=== PATIENT | female | born 2000 | race Caucasian/White ===

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

== ENCOUNTER 2022-07-09 14:06 | Emergency (ER) | payer BC, SELFPAY ==
[2022-07-09 14:13] VITALS: BP 131/80; PULSE 95; O2SAT 100
[2022-07-09 14:31] VITALS: BP 131/80; PULSE 102; RESP 16; TEMP 36.7; O2SAT 100; BMI 19.3
--- NOTE | 2022-07-09 14:36 | CT_ITS ---
PROCEDURE INFORMATION: Exam: CT Abdomen And Pelvis With Contrast Exam date and time: 07/09/2022 3:03 PM Age: 21 years old Clinical indication: Abdominal pain; Generalized; Additional info: Abd pain- left lower TECHNIQUE: Imaging protocol: Computed tomography of the abdomen and pelvis with contrast. Radiation optimization: All CT scans at this facility use at least one of these dose optimization techniques: automated exposure control; mA and/or kV adjustment per patient size (includes targeted exams where dose is matched to clinical indication); or iterative reconstruction. Contrast material: ISOVUE; Contrast volume: 75 ml; Contrast route: IV; Other protocol: This patient has received 2 known CTs and 0 known cardiac nuclear medicine studies in the 12 months prior to the current study. COMPARISON: CT ABDOMEN PELVIS W CON 11/18/2021 8:50 PM FINDINGS: Lungs: No acute findings in the visualized lower lungs. No consolidation. Heart: The heart is not enlarged. Liver: Mild diminished attenuation in the medial segment of the left lobe of liver which has the appearance of benign periligamentous fatty change coronal series 1001, image 9. No suspicious mass. No hepatomegaly. Gallbladder and bile ducts: The gallbladder is unremarkable. No calcified stones or biliary dilatation. Pancreas: The pancreas is normal. Spleen: The spleen is normal. Adrenal glands: The adrenal glands are normal. Kidneys and ureters: The kidneys are normal. The ureters are normal. Stomach and bowel: The stomach is normal. Mild gaseous distention of multiple small intestinal loops with some scattered air-fluid levels, but no significantly dilated loops to suggest obstruction, and no significant mucosal thickening. The ascending and proximal transverse colon, and the sigmoid colon are empty and contracted which may account for thickened appearance, differential would be colitis. There is gaseous distention of the transverse colon which is located in the upper pelvis. Appendix: No findings of appendicitis. Intraperitoneal space: There is trace free fluid in the cul-de-sac.There is no free intraperitoneal air. Vasculature: There is no aortic aneurysm. Lymph nodes: No significantly enlarged lymph nodes by short axis criteria. Urinary bladder: The bladder is normal. Reproductive: Peripheral hypervascularity in the uterine myometrium series 3, image 94. Slight adnexal hypervascularity, no significantly distended varices or renal vein dilatation. Likely multiple tiny cervical nabothian cysts series 3, image 90, rather than other cervical disease, this would be more accurately evaluated with ultrasound. Low-density ovaries with likely multiple tiny follicles. The largest follicular cyst is on the left, with prominent rim enhancement, measuring approximately 2.2 cm coronal image 27, axial series 3, image 86, with slightly irregular contours suggesting an involuting functional cyst. Bones/joints: There is no evidence of acute fracture. There are no lytic skeletal lesions seen. Soft tissues: There are no soft tissue masses or fluid collections. IMPRESSION: 1. Likely involuting functional 2.2 cm left ovarian cyst, with rim enhancement and irregular contours. This is within normal limits for age. Trace free fluid in the cul-de-sac. 2. There is slight uterine myometrial and bilateral adnexal hypervascularity in the pelvis, though no significant dilated varices are seen. This may be of no clinical significance, but can be seen with history of PID, endometriosis, or this could be early pelvic venous congestion. 3. Loops of ascending and proximal transverse colon, and sigmoid colon are
[2022-07-09 14:37] LABS: Microscopic, Urine URINE MICROSCOPIC (MICROSCOPIC)
[2022-07-09 14:43] LABS: Appearance,Urine SL CLOUDY (Clear); Blood, Urine 2+ (Negative); Color,Urine YELLOW (Yellow); Glucose,Urine (UA) Negative (Negative); Ketones,Urine TRACE (Negative); Leukocyte Esterase,Urine Negative (Negative); Nitrate,Urine Negative (Negative); PH,Urine 6.5 (5.0-8.5); Protein,Urine 1+ (Negative); Specific Gravity, Urine >= 1.030 (1.005-1.030)
[2022-07-09 14:45] LABS: Basophils # 0.1 K/mm3 (0-0.2); Basophils % 1.5 % (0.1-2.0); Bilirubin,Urine 1+ (Negative); Eosinophils # 0.4 K/mm3 (0.0-0.4); Eosinophils % 5.3 % (0.1-12.0); Hematocrit 43.5 % (37.0-47.0); Hemoglobin 14.5 g/dL (12.2-16.2); Lymphocytes # 1.8 K/mm3 (0.7-4.5); Lymphocytes % 21.4 % (10-50); Mean Corpuscular HGB Conc 33.4 g/dL (31.8-35.4); Mean Corpuscular Hemoglobin 30.4 pg (27.0-31.2); Mean Platelet Volume 11.1 fl (7.4-10.4); Monocytes # 0.5 K/mm3 (0.1-1.0); Monocytes % 6.4 % (1.7-9.3); Neutrophils # 5.5 K/mm3 (1.8-7.8); Neutrophils % 65.5 % (37.0-80.0); Platelet Count 154 K/mm3 (142-424); Red Blood Count 4.78 M/mm3 (4.20-5.40); Red Cell Distribution Width 13.4 % (11.5-17.5); Urine Pregnancy, HCG Qual. Negative (Negative); White Blood Count 8.5 K/mm3 (4.5-13.0)
--- NOTE | 2022-07-09 14:53 | HMH.EDGENADL ---
Discharge Plan Disposition Patient Disposition: Home, Self-Care Condition: Good Referrals Follow up/Referrals: Provider,MD Winnie [Primary Care Provider] - See instructions Angeline Yost MD [Staff Physician] - See instructions Activity Restrictions/Add. Instructions Additional Instructions/Restrictions: Ibuprofen for pain. Follow-up with Dr. Yost, gynecology. Call Monday to make appointment. Return for worsening symptoms. Additional instructions for ABDOMINAL PAIN: See your physician as soon as possible for further evaluation. Return immediately if worsening abdominal pain, vomiting, shortness of breath, fever, vomiting of blood or abdominal distention. Clinical Impressions Clinical Impression: Ovarian cyst Instructions Patient Instructions: DI for Ovarian Cyst, DI for Abdominal Pain-Adult Discharge ED Provider: Jesús Marcano General Adult HPI General Chief complaint: Abdominal Pain Stated complaint: LT pelvic pain w/inflammation Time Seen by Provider: 07/09/22 14:45 Mode of Arrival: Wheelchair Source of Information: Patient Limitations: No Limitations Description of Symptoms (Recalled from ER Triage Doc. by RN): pt comes in with c/o left sided pelvic area pain. pt believes that she may have had a cyst burst. pt states that she was seen here before and was told that she may have a cyst on the right side but pain today is located on the left side. pain began yesterday, worse today. History of Present Illness HPI narrative: 2-day history of left lower quadrant abdominal pain without radiation. Feels similar to previous pain that she had on the right side, was told that she had had a cyst that had ruptured. Describes the pain as achy at times and sharp and stabbing at times. She is having a hard time starting her urinary stream and the pain in her left lower quadrant increases when she tries to urinate. Last bowel movement 2 days ago, no diarrhea. Denies fever. Last menstrual period June 07, 2022. No vomiting. No prior history of abdominal surgeries. Nulligravida. No history of kidney stones. Related Data Allergies Allergy/AdvReac Type Severity Reaction Status Date / Time No Known Allergies Allergy Verified 07/22/21 20:39 [facility] Disclaimer: The information contained in this section may have been updated after the patient was seen, as this information can be updated by other users. Social History Smoking Status: Current every day smoker ROS Obtained: Yes Systems reviewed as appropriate & no additional complaints except as documented Constitutional Constitutional: Denies fever(s), Denies headache(s) and Denies weakness ENT Ears, Nose, Mouth, and Throat: Denies headache(s), Denies nasal discharge and Denies sore throat Cardiovascular Cardiovascular: Denies chest pain Respiratory Respiratory: Denies shortness of breath and Denies cough Gastrointestinal Gastrointestingal: Reports abdominal pain and constipation; Denies diarrhea or vomiting Genitourinary Female Genitourinary: Denies difficulty voiding, Denies dysuria and Denies flank pain Musculoskeletal Musculoskeletal: Denies numbness Neurologic Neurologic: Denies headache(s), Denies numbness and Denies weakness Physical Exam General General appearance: alert and in no apparent distress Head Head exam: atraumatic and normocephalic Eye Eye exam: Present normal appearance and EOMI ENT ENT exam: Present mucous membranes moist Neck Neck exam: Present normal inspection and trachea midline Chest Chest inspection: Present normal inspection and symmetric chest wall rise Respiratory Respiratory exam: Present normal lung sounds bilaterally; Absent respiratory distress Cardiovascular Cardiovascular exam: Present regular rate, normal rhythm and normal heart sounds Abdominal Exam Abdominal exam: Present soft, tenderness and normal bowel sounds; Absent distention, guarding, rebound or rigidity Abdominal tenderness: Present LLQ and mi
[2022-07-09 14:55] LABS: Bacteria,Urine Trace /lpf
[2022-07-09 14:56] LABS: Chloride 108 mmol/L (98-107)
[2022-07-09 14:57] LABS: Potassium 3.5 mmoL/L (3.5-5.1); Sodium 140 mmol/L (136-145)
[2022-07-09 14:59] LABS: Amylase 65 U/L (30-110); Blood Urea Nitrogen 7 mg/dl (7-17); Creatinine Clearance Estimated 103 mL/min (50-200); Estimated Glomerular Filt Rate 92 ml/min (>60); GFR (African American) 112 ML/MIN (>60); Lipase 27 U/L (23-300)
[2022-07-09 15:00] LABS: Alanine Aminotransferase 15 U/L (12-78); Albumin Level 4.7 g/dl (3.5-5.0); Albumin/Globulin Ratio 1.4 (1.1-1.8); Alkaline Phosphatase 73 U/L (38-126); Anion Gap 10.5 mEq/L (5-15); Aspartate Amino Transferase 27 U/L (14-36); Bilirubin,Total 0.8 mg/dl (0.2-1.3); Calcium 9.2 mg/dl (8.4-10.2); Carbon Dioxide 25 mmol/L (22.0-30.0); Globulin 3.4 g/dL (1.3-3.2); Glucose 104 mg/dl (74-100); Total Protein,Serum 8.1 g/dl (6.3-8.2)
--- NOTE | 2022-07-09 15:28 | PC.NURSE ---
PT LAYING IN BED NOTHING HAS CHANGED
[2022-07-09 15:30] VITALS: BP 118/74; PULSE 92; O2SAT 99
[2022-07-09 16:19] VITALS: BP 120/71; PULSE 100; RESP 18; TEMP 36.7; O2SAT 100
== END 2022-07-09 16:22 | disposition home or self-care (01) ==
PROVIDERS: Emergency Provider Emergency Medicine
DX: N83.202 Unspecified ovarian cyst, left side (principal); R10.2 Pelvic and perineal pain; F17.210 Nicotine dependence, cigarettes, uncomplicated
CPT/HCPCS: 74177; 80053; 81001; 81025; 82150; 83690; 85025; 96374; 99285; Q9967

== ENCOUNTER 2023-09-05 22:17 | Emergency (ER) | payer BC, SELFPAY ==
[2023-09-05 22:24] VITALS: BP 130/78; PULSE 98; RESP 16; TEMP 36.4; O2SAT 99; BMI 19.8
--- NOTE | 2023-09-05 22:28 | HMH.EDGENADL ---
Discharge Plan Disposition Patient Disposition: Home, Self-Care Condition: Good Prescriptions Prescriptions: No Action No Known Home Medications Referrals Follow up/Referrals: Mckenna Zambrano MD [Referring] - See instructions Provider,MD Winnie [Primary Care Provider] - See instructions Activity Restrictions/Add. Instructions Additional Instructions/Restrictions: I have placed a referral for you to be established with a [facility] doctor. Please return with any new or worsening symptoms. I recommend you take anti-inflammatories such as ibuprofen as needed for pain. Clinical Impressions Clinical Impression: Dyspareunia Instructions Patient Instructions: DI for Acute Abdominal Pain Discharge ED Provider: Ashu Mock General Adult HPI General Chief complaint: Abdominal Pain Stated complaint: abd pain Time Seen by Provider: 09/05/23 22:28 History of Present Illness HPI narrative: Patient presents for evaluation of acute onsets suprapubic pain, moderate in severity, nonradiating, with no associated nausea or vomiting which occurred after intercourse. She denies any vaginal bleeding. She has not had similar symptoms before. Does report history of ovarian cyst but reports her pain is not in the same location. Her pain in the past has been more lateral in nature. She was in her normal state of health prior to onset of symptoms. Denies any dysuria or frequency. Denies any pain elsewhere. No previous therapies. The patient's pain was abrupt in onset, constant, however gradually improving. Her last menstrual period was approximately 3 weeks ago. Please note that above description of symptoms, in this electronic medical record under categorization of recalled from ER triage doctor by RN are reflective of an initial nursing assessment, however, is not reflective of my full history and physical exam that was personally taken and clarified. Consequentially, this preceding description of symptoms, which may include the patient's categorized chief complaint in the EMR, do not reflect my personal clinical impression, and the ultimate description of history of present illness and patient stated complaints should be deferred to this section of the note. Unless stated otherwise or congruent with this section of the note, additional signs, symptoms, or incongruence should be interpreted as inaccurate with my clinical impression. Related Data Home Medications Medication Instructions Recorded Confirmed No Known Home Medications 10/31/22 10/31/22 Allergies Allergy/AdvReac Type Severity Reaction Status Date / Time No Known Allergies Allergy Verified 07/22/21 20:39 [facility] Disclaimer: The information contained in this section may have been updated after the patient was seen, as this information can be updated by other users. Social History Smoking Status: Current every day smoker alcohol intake: never current occupational status: other Travel in the last 8 weeks: None ROS Obtained: Yes Systems reviewed as appropriate & no additional complaints except as documented As per HPI Physical Exam General General appearance: alert and in no apparent distress Head Head exam: atraumatic and normocephalic Eye Eye exam: Present normal appearance Neck Neck exam: Present normal inspection Chest Chest inspection: Present normal inspection and symmetric chest wall rise Respiratory Respiratory exam: Present normal lung sounds bilaterally; Absent respiratory distress Cardiovascular Cardiovascular exam: Present regular rate and normal rhythm Abdominal Exam Abdominal exam: Present soft; Absent guarding Abdominal tenderness: Present suprapubic and mild Neurological Exam Neurological exam: Present alert and oriented X3 Psychiatric Psychiatric exam: Present normal affect and normal mood Skin Skin exam: Present warm and dry Medical Decision Making Medical Records Medical records reviewed: Yes I reviewed the patient's medical records. Ryan Inquiry Pt receiving controlled substance: No Vital Signs: 09/05/23 22:24 09/05/23 23:06 09/06/23 00:07 Temperature 97.6 F 97.6 F Temperature Source Oral Oral Pulse Rate 87 81 Pulse Rate [Left] 98 H Respiratory Rate 16 16 Blood Pressure 119/68 107/83 L Blood Pressure [Right Arm] 130/78 Blood Pressure Mean 85 Blood Pressure Mean [Right Arm] 95 Blood Pressure Source [Right Arm] Automatic Cuff Blood Pressure Position [Right Arm] Sitting 02 Sat by Pulse Oximetry 99 98 Lab Data Lab Results 09/05/23 22:52: Urine Color Yellow, Urine Appearance Clear, Urine pH 5.5, Ur Specific [place] >= 1.030, Urine Protein 1+, Urine Glucose (UA) Negative, Urine Ketones Trace, Urine Blood 2+, Urine Nitrate Negative, Urine Bilirubin 1+ A, Urine Urobilinogen 0.2, Ur Leukocyte Esterase Negative, Urine RBC Occasional, Urine WBC Occasional, Ur Squamous Epith Cells 3-5, Urine Bacteria Trace, Urine HCG, Qual Negative Orders (Tests/Meds): ED MEDICATIONS Discontinued Medications Generic Name Dose Route Start Last Admin Trade Name Freq PRN Reason Stop Dose Admin Ketorolac Tromethamine 15 mg 09/05/23 22:53 09/05/23 23:15 Ketorolac 30mg/Ml Vial IM 09/05/23 22:54 Not Given ONCE ONE Ketorolac Tromethamine 15 mg 09/05/23 23:16 09/05/23 23:18 Ketorolac 30mg/Ml Vial IV 09/05/23 23:17 15 mg ONCE ONE Administration ORDERS Category Date Time Status Urinalysis and Microscopic Stat Lab 09/05/23 22:52 Completed Urine , HCG Qual. Stat Lab 09/05/23 22:52 Completed Medical Decision Narrative: Patient with history and exam per above presenting for evaluation of dyspareunia Diagnoses considered include endometriosis, cystitis, , ovarian torsion, ectopic . ED workup and treatment included: Urine , urinalysis, ketorolac IV x 1, 15 mg, [id number] ultrasound, transabdominal, of the ovaries Labs were independently interpreted by me, significant for no strong evidence, when clinically correlated, to suggest PID, cystitis Imaging was independently visualized and interpreted by me, significant for no visualized ovarian cyst, appropriate blood flow to bilateral ovaries. My clinical impression at this time is most consistent with uncomplicated dyspareunia. Patient reports marked improvement of symptoms after administration of ketorolac. I discussed my clinical impression with patient and answered all questions. At this time, the evidence for any other entities in the differential is insufficient to warrant any further testing or ED observation. This was explained to the patient. The patient was advised that persistent or worsening symptoms require further evaluation. I confirmed the patient's understanding of this discussion. Critical Care Critical Care Time Critical Care Time: No
[2023-09-05 22:59] LABS: Microscopic, Urine URINE MICROSCOPIC (MICROSCOPIC)
[2023-09-05 23:02] LABS: Appearance,Urine CLEAR (Clear); Bilirubin,Urine 1+ (Negative); Blood, Urine 2+ (Negative); Color,Urine YELLOW (Yellow); Glucose,Urine (UA) Negative (Negative); Ketones,Urine TRACE (Negative); Leukocyte Esterase,Urine Negative (Negative); Nitrate,Urine Negative (Negative); PH,Urine 5.5 (5.0-8.5); Protein,Urine 1+ (Negative); Specific Gravity, Urine >= 1.030 (1.005-1.030); Urobilinogen,Urine 0.2 EU/dl (0.2)
[2023-09-05 23:05] LABS: Urine Pregnancy, HCG Qual. Negative (Negative)
[2023-09-05 23:06] VITALS: BP 119/68; PULSE 87; O2SAT 98
[2023-09-05 23:17] LABS: Bacteria,Urine Trace /lpf; RBC,Urine Occasional #/hpf (0-3); WBC,Urine Occasional #/hpf (0-3)
[2023-09-05] MEDS: KETOROLAC 30MG/ML VIAL 15 MG IV (23:18)
[2023-09-06 00:07] VITALS: BP 107/83; PULSE 81; RESP 16; TEMP 36.4; O2SAT 99
== END 2023-09-06 00:08 | disposition home or self-care (01) ==
PROVIDERS: Emergency Provider Emergency Medicine
DX: R10.2 Pelvic and perineal pain (principal); N94.10 Unspecified dyspareunia; F17.210 Nicotine dependence, cigarettes, uncomplicated
CPT/HCPCS: 81001; 81025; 96372; 96374; 99284

== ENCOUNTER 2024-05-10 16:31 | Emergency (ER) | payer SELFPAY ==
[2024-05-10 16:45] VITALS: BP 139/98; PULSE 77; RESP 19; TEMP 36.7; O2SAT 100; BMI 21.7
--- NOTE | 2024-05-10 17:13 | ED_ITS ---
Discharge Plan Disposition Patient Disposition: Home, Self-Care Condition: Good Prescriptions Prescriptions: New amoxicillin 875 mg tablet 875 mg PO Q12H Qty: 20 0RF fluticasone propionate [Flonase Allergy Relief] 50 mcg/actuation spray,suspension 2 spray intranasal DAILY Qty: 16 0RF Rx Instructions: administer into each nostril daily Referrals Follow up/Referrals: Provider,Referral, MD [Primary Care Provider] - See instructions Activity Restrictions/Add. Instructions Additional Instructions/Restrictions: Take medication as prescribed Use flonase as prescribed FOllow up with your Family Doctor if no improvement or any worsening of symptoms Return if needed Over the counter Motrin and/or Tylenol for pain and fever Clinical Impressions Clinical Impression: Otitis media Qualifiers: Otitis media type: unspecified Laterality: left Qualified Code(s): H66.92 - Otitis media, unspecified, left ear Instructions Patient Instructions: Middle Ear Infection, Ibuprofen, Amoxicillin Print Language Print Language: [place]ese Discharge ED Provider: Maddi Khan [facility] General Stated complaint: left earache Mode of Arrival: Ambulatory Source of Information: Patient Limitations: No Limitations Time Seen by Provider: 05/10/24 17:13 Description of Symptoms (Recalled from Triage Doc. by RN): PATIENT C/O LEFT EAR PAIN THAT STARTED TODAY HEENT Symptoms (Recalled from RN notes): Yes Resp Symptoms (Recalled from RN notes): No Skin Symptoms (Recalled from RN notes): No MS Symptoms (Recalled from RN notes): No Functional Status (Recalled from RN notes): WNL History of Present Illness Provider Complaint: Patient states that she has been having cough and today she started with sharp pains in her left ear States this evening it was worse so she came in to get checked Related Data Previous Rx's ?Medication ?Instructions ?Recorded amoxicillin 875 mg tablet 875 mg PO Q12H #20 tabs 05/10/24 fluticasone propionate 50 2 spray intranasal DAILY #16 grams 05/10/24 mcg/actuation nasal spray,suspension (Flonase Allergy Relief) Allergies Allergy/AdvReac Type Severity Reaction Status Date / Time No Known Allergies Allergy Verified 07/22/21 20:39 Worker's Comp Is this a Worker's Comp case?: No [facility] Disclaimer: The information contained in this section may have been updated after the patient was seen, as this information can be updated by other users. Social History (Updated 09/06/23 @ 18:48 by Ashu Mock MD) Smoking Status: Current every day smoker alcohol intake: never current occupational status: other Travel in the last 8 weeks: None Have you lived/traveled outside [place] in past 30 days?: No Contact w/someone who lives/traveled outside US past 30 days?: No Exposure to someone with infectious disease in past 14 days?: No Do you have a fever (greater than 100.4 F or 38 C)?: No Have you tested positive for COVID-19: No Exposed to someone with COVID-19 in past 14 days?: No Do you have a sore throat?: No Do you have a cough?: No Do you have any weakness?: No Do you have any diarrhea?: No Are you experiencing any unusual bleeding?: No Do you have any muscle aches/pain?: No Do you have any abdominal pain?: No Are you experiencing loss of taste or smell?: No ROS Obtained: Yes All systems reviewed & no additional complaints except as documented and Yes Systems reviewed as appropriate & no additional complaints except as documented Constitutional Constitutional: Reports system reviewed and no additional complaints, except as documented and Reports as per HPI ENT Ears, Nose, Mouth, and Throat: Reports system reviewed and no additional complaints, except as documented, Reports as per HPI and Reports otalgia Cardiovascular Cardiovascular: Reports system reviewed and no additional complaints, except as documented and Reports as per HPI Respiratory Respiratory: Reports system reviewed and no additional complaints, except as documented, Reports as per HPI and Reports cough Gastrointestinal Gastrointestingal: Reports system reviewed and no additional complaints, except as documented and as per HPI Physical Exam General General appearance: alert and in no apparent distress ENT ENT exam: Present mucous membranes moist Expanded ENT Exam TM/Canal exam: Left TM: erythema and loss of landmarks Respiratory Respiratory exam: Present normal lung sounds bilaterally; Absent respiratory distress or wheezes Cardiovascular Cardiovascular exam: Present regular rate, normal rhythm and normal heart sounds Abdominal Exam Abdominal exam: Present soft and normal bowel sounds; Absent distention or tenderness Neurological Exam Neurological exam: Present alert, oriented X3 and normal gait Medical Decision Making Medical Records Screening: Per USPSTF and CDC recommendations, given the prevalence of disease in our region, it is our hospital?s policy to screen for HIV and viral Hepatitis for all patients aged 18 and over and those with ongoing risk factors. Ryan Inquiry Pt receiving controlled substance: No Ryan was queried for this patient: No Vital Signs: 05/10/24 16:45 Temperature 98.0 F Temperature Source Oral Pulse Rate [Left Brachial] 77 Respiratory Rate 19 Blood Pressure [Left Arm] 139/98 H Blood Pressure Mean [Left Arm] 111 Blood Pressure Source [Left Arm] Automatic Cuff Blood Pressure Position [Left Arm] Sitting 02 Sat by Pulse Oximetry 100 Oxygen Delivery Method Room Air
[2024-05-10 17:19] VITALS: BP 139/98; PULSE 77; RESP 20; TEMP 36.7; O2SAT 100
== END 2024-05-10 17:22 | disposition home or self-care (01) ==
PROVIDERS: Emergency Provider Nurse Practitioner
DX: H66.92 Otitis media, unspecified, left ear (principal); H92.09 Otalgia, unspecified ear; R05.9 Cough, unspecified
CPT/HCPCS: 99212; G0381

== ENCOUNTER 2024-05-29 14:51 | Emergency (ER) | payer SELFPAY ==
[2024-05-29 14:52] VITALS: BP 123/87; PULSE 90; RESP 16; TEMP 36.7; O2SAT 98; BMI 20.9
--- NOTE | 2024-05-29 15:04 | ED_ITS ---
Discharge Plan Disposition Patient Disposition: Home, Self-Care Condition: Good Prescriptions Prescriptions: No Action amoxicillin 875 mg tablet 875 mg PO Q12H Qty: 20 0RF fluticasone propionate [Flonase Allergy Relief] 50 mcg/actuation spray,suspension 2 spray intranasal DAILY Qty: 16 0RF Rx Instructions: administer into each nostril daily Referrals Follow up/Referrals: Cong Borja DO [Staff Physician] - See instructions Provider,Referral, MD [Primary Care Provider] - See instructions Activity Restrictions/Add. Instructions Additional Instructions/Restrictions: I have placed a referral to the orthopedic doctor for you to follow-up in case you need further testing such as an MRI if your pain does not go away. I recommend rest, ice, elevation, weightbearing as tolerated, as well as crutches and an air splint of your ankle that you should use as needed. I recommend you take a total of 3 to 5 days of ibuprofen 3 times a day. Please return with any new or worsening symptoms. As discussed, your x-rays of your ankle and knee did not show any fractures. Clinical Impressions Clinical Impression: Knee pain, right, Ankle pain, left Print Language Print Language: [place] Citizen Discharge ED Provider: Ashu Mock Adult HPI General Chief complaint: PAIN Stated complaint: AO 05/25/24, fell, inj rt knee, lt ankle Time Seen by Provider: 05/29/24 15:04 History of Present Illness HPI narrative: Patient presents for evaluation of right knee pain, lateral, and left ankle pain , lateral, following fall from standing on 05/25/2024. She has been able to bear weight since that time. Symptoms were acute in onset, constant, stable in course. No pain elsewhere. No numbness or tingling. No blood thinner usage. Please note that above description of symptoms, in this electronic medical record under categorization of recalled from ER triage doctor by RN are reflective of an initial nursing assessment, however, is not reflective of my full history and physical exam that was personally taken and clarified. Consequentially, this preceding description of symptoms, which may include the patient's categorized chief complaint in the EMR, do not reflect my personal clinical impression, and the ultimate description of history of present illness and patient stated complaints should be deferred to this section of the note. Unless stated otherwise or congruent with this section of the note, additional signs, symptoms, or incongruence should be interpreted as inaccurate with my clinical impression. Related Data Previous Rx's ?Medication ?Instructions ?Recorded amoxicillin 875 mg tablet 875 mg PO Q12H #20 tabs 05/10/24 fluticasone propionate 50 2 spray intranasal DAILY #16 grams 05/10/24 mcg/actuation nasal spray,suspension (Flonase Allergy Relief) Allergies Allergy/AdvReac Type Severity Reaction Status Date / Time No Known Allergies Allergy Verified 07/22/21 20:39 [facility] Disclaimer: The information contained in this section may have been updated after the patient was seen, as this information can be updated by other users. Social History (Updated 09/06/23 @ 18:48 by Ashu Mock MD) Smoking Status: Current every day smoker alcohol intake: never current occupational status: other Travel in the last 8 weeks: None Have you lived/traveled outside US in past 30 days?: No Contact w/someone who lives/traveled outside US past 30 days?: No Exposure to someone with infectious disease in past 14 days?: No Do you have a fever (greater than 100.4 F or 38 C)?: No Have you tested positive for COVID-19: No Exposed to someone with COVID-19 in past 14 days?: No Do you have a sore throat?: No Do you have a cough?: No Do you have any weakness?: No Do you have any diarrhea?: No Are you experiencing any unusual bleeding?: No Do you have any muscle aches/pain?: No Do you have any abdominal pain?: No Are you experiencing loss of taste or smell?: No Other Medical History Have you received the Flu Vaccine for this season: No Have you received the Pneumonia Vaccine: No ROS Obtained: Yes other As per HPI Physical Exam General General appearance: alert and in no apparent distress Head Head exam: atraumatic and normocephalic Eye Eye exam: Present normal appearance Neck Neck exam: Present normal inspection Chest Chest inspection: Present normal inspection and symmetric chest wall rise Respiratory Respiratory exam: Present normal lung sounds bilaterally; Absent respiratory distress Cardiovascular Cardiovascular exam: Present regular rate and normal rhythm Abdominal Exam Abdominal exam: Present soft Neurological Exam Neurological exam: Present alert and oriented X3 Psychiatric Psychiatric exam: Present normal affect and normal mood Skin Skin exam: Present warm and dry Other Other exam information: Tenderness to palpation over lateral aspect of right knee, no varus or valgus laxity. Negative anterior and posterior drawer signs. Lateral malleolar tenderness to palpation over left ankle. Medical Decision Making Medical Records Medical records reviewed: Yes I reviewed the patient's medical records. Screening: Per USPSTF and CDC recommendations, given the prevalence of disease in our region, it is our hospital?s policy to screen for HIV and viral Hepatitis for all patients aged 18 and over and those with ongoing risk factors. Ryan Inquiry Pt receiving controlled substance: No Vital Signs: 05/29/24 14:52 05/29/24 15:43 05/29/24 16:37 Temperature 98.0 F 98.3 F Temperature Source Oral Pulse Rate 68 68 Pulse Rate [Radial] 90 Respiratory Rate 16 18 18 Blood Pressure 110/78 Blood Pressure [Left Arm] 123/87 Blood Pressure Mean [Left Arm] 99 Blood Pressure Source [Left Arm] Automatic Cuff Blood Pressure Position [Left Arm] Sitting 02 Sat by Pulse Oximetry 98 98 Oxygen Delivery Method Room Air Room Air Orders (Tests/Meds): ORDERS Category Date Time Status Ankle XR - Left minimum 3 Views [XR ankle LT min 3V] Exams 05/29/24 15:15 Completed Stat XR knee RT 3V Stat Exams 05/29/24 15:15 Completed XR tibia fibula RT 2V Stat Exams 05/29/24 15:15 Completed Medical Decision Narrative: Patient with history and exam per above presenting for evaluation of knee and ankle injury Diagnoses considered include fracture, soft tissue injury, no clinical evidence at this time for vascular or nerve injury. ED workup and treatment included: ORDERS Category Date Time Status Ankle XR - Left minimum 3 Views [XR ankle LT min 3V] Exams 05/29/24 15:15 Completed Stat XR knee RT 3V Stat Exams 05/29/24 15:15 Completed XR tibia fibula RT 2V Stat Exams 05/29/24 15:15 Completed Imaging was independently visualized and interpreted by me, significant for no acute findings Please refer to radiology report for full details. My clinical impression at this time is most consistent with likely soft tissue injury, patient will follow-up with orthopedist, RICE, weightbearing as tolerated. I discussed my clinical impression with patient and answered all questions. At this time, the evidence for any other entities in the differential is insufficient to warrant any further testing or ED observation. This was explained to the patient. The patient was advised that persistent or worsening symptoms require further evaluation. Critical Care Critical Care Time Critical Care Time: No
--- NOTE | 2024-05-29 15:10 | PC.NURSE ---
DR HERNANDEZ AT BEDSIDE
--- NOTE | 2024-05-29 15:15 | XR_ITS ---
FINAL REPORT CLINICAL HISTORY: fall, lateral mal pain 4 days ago COMPARISON: None FINDINGS: LEFT ANKLE Three views demonstrate no acute fracture or dislocation. The visualized joint spaces are normally aligned. The ankle mortise is intact. There is a small os trigonum. The soft tissues are unremarkable. IMPRESSION: No acute bony abnormality. Reviewed, Interpreted and Dictated by Samuel Mohr MD Transcribed by Kanchan Hall Authenticated and [facility]
--- NOTE | 2024-05-29 15:15 | XR_ITS ---
FINAL REPORT CLINICAL HISTORY: fall, twisting injury, lateral knee pain 4 days ago COMPARISON: None FINDINGS: RIGHT KNEE 3 views of the right knee were obtained. There is no acute fracture or dislocation. Visualized joint spaces are normally aligned. Soft tissues are unremarkable. IMPRESSION: No acute bony abnormality. Reviewed, Interpreted and Dictated by Samuel Mohr MD Transcribed by Kanchan Hall Authenticated and [facility]
--- NOTE | 2024-05-29 15:15 | XR_ITS ---
FINAL REPORT CLINICAL HISTORY: fall, twisting injury, lateral knee pain COMPARISON: None FINDINGS: Two views of the right tibia/fibula were obtained. There is no acute fracture or dislocation. The joint spaces are intact. There is no soft tissue abnormality. IMPRESSION: No acute process. Reviewed, Interpreted and Dictated by Samuel Mohr MD Transcribed by Kanchan Hall Authenticated and [facility]
--- NOTE | 2024-05-29 15:32 | PC.NURSE ---
PT RETURNED FROM XR
[2024-05-29 15:43] VITALS: PULSE 68; RESP 18; O2SAT 98
[2024-05-29 16:37] VITALS: BP 110/78; PULSE 68; RESP 18; TEMP 36.8
== END 2024-05-29 16:41 | disposition home or self-care (01) ==
PROVIDERS: Emergency Provider Emergency Medicine
DX: M25.561 Pain in right knee (principal); M25.572 Pain in left ankle and joints of left foot; W19.XXXA Unspecified fall, initial encounter; Y93.9 Activity, unspecified
CPT/HCPCS: 73562; 73590; 73610; 99283

== ENCOUNTER 2024-06-23 17:16 | Emergency (ER) | payer MEDICAID, SELFPAY ==
[2024-06-23 17:30] VITALS: BP 117/78; PULSE 76; RESP 19; TEMP 36.9; O2SAT 98; BMI 25.7
[2024-06-23 17:44] LABS: UTC Strep Screen (Rapid) Negative (Negative)
--- NOTE | 2024-06-23 17:44 | ED_ITS ---
Discharge Plan Disposition Patient Disposition: Home, Self-Care Condition: Good Prescriptions Prescriptions: New amoxicillin 875 mg tablet 875 mg PO BID 10 Days Qty: 20 0RF Referrals Follow up/Referrals: Provider,Referral, MD [Primary Care Provider] - See instructions Activity Restrictions/Add. Instructions Additional Instructions/Restrictions: *Monitor Temp, Over the counter Motrin or Tylenol as directed/as needed Tylenol every 4 hours and Motrin every 6 hours (as long as your family doctor has told you that you can take it) for fever or pain. and straight to ER if unable to lower temp less than 101.0 after medication given *Warm salt water gargles may help to soothe the throat *Throat Lozenges? *Warm fluids like tea with honey may help to soothe the throat? *Sleep elevated *Humidifier/Vaporizer Your throat swab was sent for culture. Those results are typically sent to your primary care. Be sure to follow up in 2-3 days with your family doctor/primary care physician if no improvement so they can review those result and treat if necessary. ?If you don?t have a primary care doctor, I recommend you get one but in the mean time, you will have to return to a walk in clinic Follow up IMMEDIATELY for new or worsening symptoms or no Noticeable improvement over the next 48-72 hours. 911 for difficulty breathing or swallowing Clinical Impressions Clinical Impression: Acute bacterial tonsillitis Instructions Patient Instructions: Amoxicillin, Sore Throat Print Language Print Language: American Discharge ED Provider: Maddi Khan [facility] General Stated complaint: cough,sore throat Mode of Arrival: Ambulatory Source of Information: Patient Limitations: No Limitations Time Seen by Provider: 06/23/24 17:44 Description of Symptoms (Recalled from Triage Doc. by RN): PATIENT C/O SORE THROAT X 5 DAYS HEENT Symptoms (Recalled from RN notes): Yes Resp Symptoms (Recalled from RN notes): No Skin Symptoms (Recalled from RN notes): No MS Symptoms (Recalled from RN notes): No Functional Status (Recalled from RN notes): WNL History of Present Illness Provider Complaint: Patient states that she has been having sore throat for about 5 days that hasnt got any better States that her throat is sore, swollen and has white patches all over it so today she came in to get it checked Related Data Previous Rx's ?Medication ?Instructions ?Recorded amoxicillin 875 mg tablet 875 mg PO BID 10 days #20 tabs 06/23/24 Allergies Allergy/AdvReac Type Severity Reaction Status Date / Time No Known Allergies Allergy Verified 07/22/21 20:39 Worker's Comp Is this a Worker's Comp case?: No [facility] Disclaimer: The information contained in this section may have been updated after the patient was seen, as this information can be updated by other users. Social History (Updated 09/06/23 @ 18:48 by Ashu Mock MD) Smoking Status: Current every day smoker alcohol intake: never current occupational status: other Travel in the last 8 weeks: None Have you lived/traveled outside US in past 30 days?: No Contact w/someone who lives/traveled outside US past 30 days?: No Exposure to someone with infectious disease in past 14 days?: No Do you have a fever (greater than 100.4 F or 38 C)?: No Have you tested positive for COVID-19: No Exposed to someone with COVID-19 in past 14 days?: No Do you have a sore throat?: Yes Do you have a cough?: Yes Do you have any weakness?: No Do you have any diarrhea?: No Are you experiencing any unusual bleeding?: No Do you have any muscle aches/pain?: No Do you have any abdominal pain?: No Are you experiencing loss of taste or smell?: No ROS Obtained: Yes All systems reviewed & no additional complaints except as documented and Yes Systems reviewed as appropriate & no additional complaints except as documented Constitutional Constitutional: Reports system reviewed and no additional complaints, except as documented and Reports as per HPI ENT Ears, Nose, Mouth, and Throat: Reports system reviewed and no additional complaints, except as documented, Reports as per HPI and Reports sore throat Cardiovascular Cardiovascular: Reports system reviewed and no additional complaints, except as documented and Reports as per HPI Respiratory Respiratory: Reports system reviewed and no additional complaints, except as documented and Reports as per HPI Gastrointestinal Gastrointestingal: Reports system reviewed and no additional complaints, except as documented and as per HPI Physical Exam General General appearance: alert and in no apparent distress ENT ENT exam: Present mucous membranes moist Expanded ENT Exam Throat exam: Present tonsillar erythema and tonsillar exudate Respiratory Respiratory exam: Present normal lung sounds bilaterally; Absent respiratory distress or wheezes Cardiovascular Cardiovascular exam: Present regular rate, normal rhythm and normal heart sounds Abdominal Exam Abdominal exam: Present soft and normal bowel sounds; Absent distention or tenderness Neurological Exam Neurological exam: Present alert, oriented X3 and normal gait Medical Decision Making Medical Records Screening: Per USPSTF and CDC recommendations, given the prevalence of disease in our region, it is our hospital?s policy to screen for HIV and viral Hepatitis for all patients aged 18 and over and those with ongoing risk factors. Ryan Inquiry Pt receiving controlled substance: No Ryan was queried for this patient: No Vital Signs: 06/23/24 17:30 Temperature 98.5 F Temperature Source Oral Pulse Rate [Left Brachial] 76 Respiratory Rate 19 Blood Pressure [Left Arm] 117/78 Blood Pressure Mean [Left Arm] 91 Blood Pressure Source [Left Arm] Automatic Cuff Blood Pressure Position [Left Arm] Sitting 02 Sat by Pulse Oximetry 98 Oxygen Delivery Method Room Air Lab Data Lab results reviewed: Yes I reviewed the patient's lab results.
[2024-06-23 18:25] LABS: Monoscreen (Rapid) Negative (Negative)
[2024-06-23 18:39] VITALS: BP 117/78; PULSE 76; RESP 19; TEMP 36.9; O2SAT 98
[2024-06-23] MEDS: AMOXICILLIN 500MG CAPSULE 500 MG PO (18:49)
== END 2024-06-23 18:49 | disposition home or self-care (01) ==
PROVIDERS: Emergency Provider Nurse Practitioner
DX: J03.90 Acute tonsillitis, unspecified (principal)
CPT/HCPCS: 86318; 87880; 99213; G0381

== ENCOUNTER 2024-08-09 10:03 | Emergency (ER) | payer MEDICAID, SELFPAY ==
--- NOTE | 2024-08-09 10:07 | HMH.EDGENADL ---
Discharge Plan Disposition Patient Disposition: Home, Self-Care Prescriptions Prescriptions: New phenazopyridine [Pyridium] 100 mg tablet 100 mg PO Q8H Qty: 6 0RF nitrofurantoin macrocrystal 100 mg capsule 100 mg PO BID 5 Days Qty: 10 0RF Rx Instructions: must administer with a meal/food Referrals Follow up/Referrals: Provider,Referral, MD [Primary Care Provider] - See instructions Clinical Impressions Clinical Impression: UTI (urinary tract infection) Qualifiers: Urinary tract infection type: site unspecified Hematuria presence: without hematuria Qualified Code(s): N39.0 - Urinary tract infection, site not specified Instructions Patient Instructions: DI for Urinary Tract Infection (UTI), DI for Urinary Tract Infection in Children Print Language Print Language: Uzbek Discharge ED Provider: Janice Doss General Adult HPI General Chief complaint: Urogenital-Female Stated complaint: blood in urine, dizziness Time Seen by Provider: 08/09/24 10:05 History of Present Illness HPI narrative: Patient is a 23-year-old with past medical history significant for asthma who presents for 1 day of dysuria increased urinary frequency and hematuria. Feels similar to her prior urinary tract infection however 10 times worse. No flank pain nausea vomiting or abdominal pain. Has never been screened for sexually transmitted diseases. No pain with sex. Unprotected sexual intercourse. LMP 2 weeks ago. 1 day of fevers chills. Related Data Previous Rx's ?Medication ?Instructions ?Recorded nitrofurantoin macrocrystal 100 mg 100 mg PO BID 5 days #10 caps 08/09/24 capsule phenazopyridine 100 mg tablet 100 mg PO Q8H 6 doses #6 tabs 08/09/24 (Pyridium) Allergies Allergy/AdvReac Type Severity Reaction Status Date / Time No Known Allergies Allergy Verified 08/09/24 10:40 [facility] Disclaimer: The information contained in this section may have been updated after the patient was seen, as this information can be updated by other users. Social History Smoking Status: Current every day smoker alcohol intake: never current occupational status: other Travel in the last 8 weeks: None Have you lived/traveled outside US in past 30 days?: No Contact w/someone who lives/traveled outside US past 30 days?: No Exposure to someone with infectious disease in past 14 days?: No Do you have a fever (greater than 100.4 F or 38 C)?: No Have you tested positive for COVID-19: No Exposed to someone with COVID-19 in past 14 days?: No Do you have a sore throat?: No Do you have a cough?: No Do you have any weakness?: No Do you have any diarrhea?: No Are you experiencing any unusual bleeding?: No Do you have any muscle aches/pain?: No Do you have any abdominal pain?: No Are you experiencing loss of taste or smell?: No Other Medical History Have you received the Flu Vaccine for this season: No Have you received the Pneumonia Vaccine: No ROS Obtained: Yes All systems reviewed & no additional complaints except as documented Physical Exam General General appearance: alert and in no apparent distress Head Head exam: normocephalic Eye Eye exam: Present normal appearance ENT ENT exam: Present mucous membranes moist Respiratory Respiratory exam: Absent respiratory distress or accessory muscle use Cardiovascular Cardiovascular exam: Present normal rhythm and tachycardia Abdominal Exam Abdominal exam: Present soft; Absent tenderness or guarding Comment: No costovertebral angle tenderness Neurological Exam Neurological exam: Present alert Medical Decision Making Medical Records Screening: Per USPSTF and CDC recommendations, given the prevalence of disease in our region, it is our hospital?s policy to screen for HIV and viral Hepatitis for all patients aged 18 and over and those with ongoing risk factors. Ryan Inquiry Pt receiving controlled substance: No Vital Signs: 08/09/24 10:14 08/09/24 10:39 08/09/24 11:00 Temperature 98.4 F Temperature Source Oral Pulse Rate 96 H 105 H Pulse Rate [Left] 113 H Respiratory Rate 16 Blood Pressure 117/75 128/84 Blood Pressure [Right Arm] 130/86 Blood Pressure Mean 89 98 Blood Pressure Mean [Right Arm] 100 Blood Pressure Source [Right Arm] Automatic Cuff Blood Pressure Position [Right Arm] Sitting 02 Sat by Pulse Oximetry 99 100 99 Oxygen Delivery Method Room Air Room Air Lab Data Lab Results 08/09/24 10:09: Urine RBC Tntc, Urine WBC 20-50, Ur Squamous Epith Cells 3-5, Urine Bacteria 2+, Urine HCG, Qual Negative Orders (Tests/Meds): ORDERS Category Date Time Status UA [Urinalysis and Microscopic] Stat Lab 08/09/24 10:09 Results Urine Chlam/Gono/Trich, HOA Stat Lab 08/09/24 10:09 Received Urine , HCG Qual. Stat Lab 08/09/24 10:09 Completed Urine Culture Stat Micro 08/09/24 10:09 Received Medical Decision Narrative: In summary, this 23-year-old female presents to the emergency department today with hematuria dysuria increased urinary frequency. On initial evaluation patient is tachycardic normotensive saturating appropriately on room air afebrile no acute distress. Differential diagnosis includes but is not limited to urinary tract infection pyelonephritis urolithiasis urethritis. Based on these concerns, I ordered UA with reflex and culture, gonorrhea chlamydia trichomonas screening, UPT. Labs personally reviewed demonstrate negative UPT, UA with pyuria bacteria based on symptoms will treat for urinary tract infection. Patient discharged with Pyridium and nitrofurantoin. Of note, social determinants of health include limited access to primary care. Critical Care Critical Care Time Critical Care Time: No
[2024-08-09 10:14] VITALS: BP 130/86; PULSE 113; RESP 16; TEMP 36.9; O2SAT 99; BMI 22.1
[2024-08-09 10:21] LABS: Microscopic, Urine URINE MICROSCOPIC (MICROSCOPIC)
[2024-08-09 10:27] LABS: Appearance,Urine CLOUDY (Clear); Bilirubin,Urine Negative (Negative); Blood, Urine LARGE (Negative); Color,Urine ORANGE (Yellow); Glucose,Urine (UA) Negative (Negative); Ketones,Urine Negative (Negative); Leukocyte Esterase,Urine SMALL (Negative); Nitrate,Urine POSITIVE (Negative); PH,Urine 8.5 (5.0-8.5); Protein,Urine >=300 (Negative); Specific Gravity, Urine 1.025 (1.005-1.030); Urobilinogen,Urine 0.2 EU/dl (0.2)
[2024-08-09 10:28] LABS: Urine Pregnancy, HCG Qual. Negative (Negative)
[2024-08-09 10:39] VITALS: BP 117/75; PULSE 96; O2SAT 100
[2024-08-09 10:56] LABS: Bacteria,Urine 2+ /lpf; RBC,Urine TNTC #/hpf (0-3)
[2024-08-09 10:57] LABS: WBC,Urine 20-50 #/hpf (0-3)
[2024-08-09 11:00] VITALS: BP 128/84; PULSE 105; O2SAT 99
[2024-08-09 11:36] VITALS: BP 126/74; PULSE 85; RESP 16; TEMP 36.7; O2SAT 100
== END 2024-08-09 11:37 | disposition home or self-care (01) ==
PROVIDERS: Emergency Provider Student in an Organized Health Care Education/Training Program
DX: N39.0 Urinary tract infection, site not specified (principal)
CPT/HCPCS: 81001; 81025; 87086; 87491; 87591; 87661; 99283

== ENCOUNTER 2024-11-17 14:30 | Emergency (ER) | payer MEDICAID, SELFPAY ==
[2024-11-17 14:36] VITALS: BP 125/81; PULSE 119; RESP 20; TEMP 36.6; O2SAT 96; BMI 25.8
--- NOTE | 2024-11-17 14:40 | XR_ITS ---
PROCEDURE INFORMATION: Exam: XR Left Ankle Exam date and time: 11/17/2024 2:45 PM Age: 24 years old Clinical indication: Pain; Ankle; Left; Additional info: Left ankle pain and swelling TECHNIQUE: Imaging protocol: Radiologic exam of the left ankle. Views: 3 or more views. COMPARISON: CR XR ANKLE LT MIN 3V 05/29/2024 3:18 PM FINDINGS: Bones/joints: Normal. Soft tissues: Normal. IMPRESSION: No acute findings.
--- NOTE | 2024-11-17 14:40 | XR_ITS ---
PROCEDURE INFORMATION: Exam: XR Left Foot Exam date and time: 11/17/2024 2:45 PM Age: 24 years old Clinical indication: Pain; Foot; Left; Additional info: Left foot pain and swelling. TECHNIQUE: Imaging protocol: Radiologic exam of the left foot. Views: 3 or more views. COMPARISON: CR XR FOOT LT MIN 3V 11/17/2024 2:45 PM FINDINGS: Bones/joints: Normal. Soft tissues: Normal. IMPRESSION: No acute findings.
[2024-11-17 14:41] VITALS: BP 125/81; PULSE 123; O2SAT 97
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
[2024-11-17] MEDS: ACETAMINOPHEN 500MG TAB 500 MG PO (14:47)
[2024-11-17] MEDS: IBUPROFEN 400 MG TABLET PO (14:47)
[2024-11-17 15:15] VITALS: PULSE 95; O2SAT 97
[2024-11-17 16:01] VITALS: BP 126/78; PULSE 80; RESP 20; TEMP 36.8; O2SAT 98
== END 2024-11-17 16:02 | disposition home or self-care (01) ==
PROVIDERS: Emergency Provider Emergency Medicine
DX: S93.402A Sprain of unspecified ligament of left ankle, initial encounter (principal); S93.602A Unspecified sprain of left foot, initial encounter; F17.210 Nicotine dependence, cigarettes, uncomplicated; W17.2XXA Fall into hole, initial encounter
CPT/HCPCS: 73610; 73630; 99284

== ENCOUNTER 2024-11-21 04:55 | Emergency (ER) | payer MEDICAID, SELFPAY ==
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
[2024-11-21 04:51] VITALS: BP 127/108; PULSE 111; RESP 20; TEMP 36.6; O2SAT 95; BMI 21.5
[2024-11-21] MEDS: TET/DIPHTH/PERT-ADULT 0.5ML SYRINGE 0.5 ML IM (04:54)
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
[2024-11-21 05:14] LABS: Urine Pregnancy, HCG Qual. Negative (Negative)
--- NOTE | 2024-11-21 05:43 | PC.NURSE ---
ed provider at the bedside for lac repair.
[2024-11-21 05:51] VITALS: BP 117/68; PULSE 68; RESP 18; TEMP 36.6; O2SAT 100
== END 2024-11-21 05:52 | disposition home or self-care (01) ==
PROVIDERS: Emergency Provider Emergency Medicine
DX: S01.01XA Laceration without foreign body of scalp, initial encounter (principal); W26.0XXA Contact with knife, initial encounter; Z23 Encounter for immunization
CPT/HCPCS: 12001; 70450; 81025; 90471; 90715; 99284

== ENCOUNTER 2024-11-26 18:53 | Emergency (ER) | payer MEDICAID, SELFPAY ==
[2024-11-26 18:53] VITALS: BP 131/75; PULSE 90; RESP 19; TEMP 36.9; O2SAT 99; BMI 25.1
--- NOTE | 2024-11-26 19:07 | ED_ITS ---
<Statement entered by Cherry Duran DO - 11/26/24 20:16> I was consulted by the MARITA, and we discussed the complexity of the problems being addressed. I approved the treatment and management plan for this patient's care in the emergency department, thus performing a substantive portion of the medical decision making. Cherry Duran DO Discharge Plan Disposition Patient Disposition: Home, Self-Care Condition: Good Prescriptions Prescriptions: No Action phenazopyridine [Pyridium] 100 mg tablet 100 mg PO Q8H Qty: 6 0RF nitrofurantoin macrocrystal 100 mg capsule 100 mg PO BID 5 Days Qty: 10 0RF Rx Instructions: must administer with a meal/food Referrals Follow up/Referrals: Provider,Referral, MD [Primary Care Provider, Medical] - See instructions Activity Restrictions/Add. Instructions Additional Instructions/Restrictions: Please return to the emergency department any worsening signs or symptoms, continue to use ice ibuprofen Tylenol as needed for your left ankle sprain, please follow-up with the orthopedic doctor. Please monitor for any redness, drainage from your wound. Please follow-up with your PCP. Clinical Impressions Clinical Impression: Encounter for removal of jacob Print Language Print Language: Citizen Of [place] Discharge ED Provider: Cherry Duran General Adult HPI General Chief complaint: PAIN Stated complaint: staple removal, left ankle pain Time Seen by Provider: 11/26/24 19:05 Mode of Arrival: Ambulatory Source of Information: Patient Description of Symptoms (Recalled from ER Triage Doc. by RN): pt presents to ed for staple removal and workup of her left ankle. pt reports that she is here to have jacob removed, but also have ankle looked at. pt was seen in ED and told to stay off ankle for 1 weeek. pt reports that she worked on monday and ankle was very swollen. History of Present Illness HPI narrative: 24-year-old female presents to the emergency department for staple removal. Patient On 11/21/2024, patient sustained a right temporal scalp laceration, she was seen in the emergency department evaluated for this, she had a 1 cm linear and clean scalp laceration that was closed with 1 staple, today she states the staple started coming out , thus presented to the emergency department for removal of staple. Patient also has some left ankle pain, has been in a boot for the last week, was subsequently seen in the emergency department for this on November 17, 2024, she states that she went to work yesterday and had some swelling , but is improved, she realizes ibuprofen ice, she has had no other evidence of any wound dehiscence or drainage from her scalp laceration, patient is yet to follow-up with orthopedic provider, patient's other past medical history consistent with iron deficiency anemia, she has no other acute symptomatology, initial triage vitals are grossly unremarkable. Onset (ago): unknown Related Data Previous Rx's ?Medication ?Instructions ?Recorded nitrofurantoin macrocrystal 100 mg 100 mg PO BID 5 day s #10 caps 08/09/24 capsule phenazopyridine 100 mg tablet 100 mg PO Q8H 6 doses #6 tabs 08/09/24 (Pyridium) Allergies Allergy/AdvReac Type Severity Reaction Status Date / Time No Known Allergies Allergy Verified 08/09/24 10:40 [facility] Disclaimer: The information contained in this section may have been updated after the patient was seen, as this information can be updated by other users. Social History Smoking Status: Current every day smoker alcohol intake: never current occupational status: other Travel in the last 8 weeks?: None Have you lived/traveled outside US in past 30 days?: No Contact w/someone who lives/traveled outside US past 30 days?: No Exposure to someone with infectious disease in past 14 days?: No Do you have a fever (greater than 100.4 F or 38 C)?: No Have you tested positive for COVID-19?: No Exposed to someone with COVID-19 in past 14 days?: No Do you have a sore throat?: No Do you have a cough?: No Do you have any weakness?: No Do you have any diarrhea?: No Are you experiencing any unusual bleeding?: No Do you have any muscle aches/pain?: No Do you have any abdominal pain?: No Are you experiencing loss of taste or smell?: No Other Medical History Have you received the Flu Vaccine for this season: No Have you received the Pneumonia Vaccine: No ROS Obtained: Yes All systems reviewed & no additional complaints except as documented Physical Exam General General appearance: alert and in no apparent distress Head Head exam: atraumatic and normocephalic Eye Eye exam: Present PERRL and EOMI ENT ENT exam: Present mucous membranes moist Neck Neck exam: Present normal inspection Chest Chest inspection: Present normal inspection and symmetric chest wall rise Respiratory Respiratory exam: Present normal lung sounds bilaterally; Absent respiratory distress Cardiovascular Cardiovascular exam: Present regular rate and normal rhythm Abdominal Exam Abdominal exam: Present soft; Absent tenderness Extremities Exam Extremities exam: Present normal inspection Neurological Exam Neurological exam: Present alert and oriented X3 Psychiatric Psychiatric exam: Present normal affect Skin Skin exam: Present warm, dry and other (1 staple was removed without incident, from the patient's right temporal scalp, wound is well epithelialized, no evid ence of any wound dehiscence or drainage.) Medical Decision Making Medical Records Medical records reviewed: Yes I reviewed the patient's medical records. Screening: Per USPSTF and CDC recommendations, given the prevalence of disease in our region, it is our hospital?s policy to screen for HIV and viral Hepatitis for all patients aged 18 and over and those with ongoing risk factors. Ryan Inquiry Pt receiving controlled substance: No Ryan was queried for this patient: No Vital Signs: 11/26/24 18:53 Temperature 98.4 F Temperature Source Oral Pulse Rate [Left Radial] 90 Respiratory Rate 19 Blood Pressure [Right Arm] 131/75 Blood Pressure Mean [Right Arm] 93 02 Sat by Pulse Oximetry 99 Orders (Tests/Meds): ORDERS Category Date Time Status HIV Combo Stat Lab 11/26/24 18:56 Ordered Hepatitis C Ab Qual. W/ RFX Stat Lab 11/26/24 18:56 Ordered Medical Decision Narrative: 24-year-old female presents emergency department for staple removal and left ankle pain, patient's has already had subsequent imaging on her left ankle/foot, all of which were negative, patient has no joint swelling, no pain or tenderness to palpation to the lateral medial malleolus or as well as dorsal midfoot, recommend continue boot and follow-up with orthopedic provider, recommend rest ice ibuprofen Tylenol, patient's 1 staple was removed without incident, patient was given generalized wound precautions, patient was given strict ED return precautions. Patient voiced understanding and agreement the current treatment plan/discharge plan. Critical Care Critical Care Time Critical Care Time: No
[2024-11-26 20:23] VITALS: BP 130/78; PULSE 65; RESP 20; TEMP 36.8; O2SAT 98
== END 2024-11-26 20:15 | disposition home or self-care (01) ==
PROVIDERS: Emergency Provider Emergency Medicine
DX: Z48.02 Encounter for removal of sutures (principal)
CPT/HCPCS: 99281

== ENCOUNTER 2024-11-29 21:38 | Emergency (ER) | payer MEDICAID, SELFPAY ==
[2024-11-29 21:39] VITALS: BP 138/84; PULSE 89; RESP 16; TEMP 37.2; O2SAT 99; BMI 25.8
--- NOTE | 2024-11-29 21:49 | HMH.EDGENADL ---
Discharge Plan Disposition Patient Disposition: Home, Self-Care Prescriptions Prescriptions: No Action phenazopyridine [Pyridium] 100 mg tablet 100 mg PO Q8H Qty: 6 0RF nitrofurantoin macrocrystal 100 mg capsule 100 mg PO BID 5 Days Qty: 10 0RF Rx Instructions: must administer with a meal/food Referrals Follow up/Referrals: Provider,Referral, MD [Primary Care Provider, Medical] - See instructions Activity Restrictions/Add. Instructions Additional Instructions/Restrictions: You can use the erythromycin ointment on both eyes 3 times daily to help with lubrication and to fight infection. You can also take Benadryl at home to help with your symptoms. If his symptoms do not improve over the weekend, follow-up with your primary care physician for evaluation. If you develop any new or worsening symptoms, such as fever, pain with eye movement, worsening vision changes, or if you become concerned for your health for any reason, return to the emergency department for evaluation. Clinical Impressions Clinical Impression: Acute conjunctivitis of both eyes Print Language Print Language: Czech Discharge ED Provider: Kelechi Alejo General Adult HPI General Stated complaint: Both eyes swelling,eyesite bad in left eye Time Seen by Provider: 11/29/24 21:43 History of Present Illness HPI narrative: Rudy Melton is a 24-year-old female with no significant past medical history who presents to the emergency department for complaints of swelling and redness to both of her eyes. Patient states that she was at work when she developed irritation and redness and swelling to her left eye. She states that vision is slightly abnormal and that eye and she sees rainbows around some lights. She states that over the course of the day, it spread to her right eye. She noticed that the whites of her eyes were red. She states that she has some allergies but has not taken any new medications or had known exposures. She took ibuprofen prior to arrival as well as artificial tears and Visine drops. She denies any shortness of breath, vomiting, diarrhea or fevers. Related Data Previous Rx's ?Medication ?Instructions ?Recorded nitrofurantoin macrocrystal 100 mg 100 mg PO BID 5 days #10 caps 08/09/24 capsule phenazopyridine 100 mg tablet 100 mg PO Q8H 6 doses #6 tabs 08/09/24 (Pyridium) Allergies Allergy/AdvReac Type Severity Reaction Status Date / Time No Known Allergies Allergy Verified 08/09/24 10:40 [facility] Disclaimer: The information contained in this section may have been updated after the patient was seen, as this information can be updated by other users. Social History Smoking Status: Current every day smoker alcohol intake: never current occupational status: other Travel in the last 8 weeks?: None Have you lived/traveled outside US in past 30 days?: No Contact w/someone who lives/traveled outside US past 30 days?: No Exposure to someone with infectious disease in past 14 days?: No Do you have a fever (greater than 100.4 F or 38 C)?: No Have you tested positive for COVID-19?: No Exposed to someone with COVID-19 in past 14 days?: No Do you have a sore throat?: No Do you have a cough?: No Do you have any weakness?: No Do you have any diarrhea?: No Are you experiencing any unusual bleeding?: No Do you have any muscle aches/pain?: No Do you have any abdominal pain?: No Are you experiencing loss of taste or smell?: No Other Medical History Have you received the Flu Vaccine for this season: No Have you received the Pneumonia Vaccine: No ROS Obtained: Yes Systems reviewed as appropriate & no additional complaints except as documented Physical Exam General General appearance: alert and in no apparent distress Head Head exam: atraumatic Eye Eye exam: Present normal appearance and other (Some swelling appreciated to bilateral upper and lower eyelids. Conjunctive injected bilaterally. Some yellowish discharge emanating from the lower eyelids bilaterally. Extraocular movements intact. Pupils equal round reactive to light. Visual gatica intact.) ENT ENT exam: Present normal external ear exam Neck Neck exam: Present full ROM Chest Chest inspection: Present symmetric chest wall rise Respiratory Respiratory exam: Present normal lung sounds bilaterally; Absent respiratory distress, wheezes or stridor Cardiovascular Cardiovascular exam: Present regular rate and normal rhythm Abdominal Exam Abdominal exam: Present soft; Absent tenderness or guarding Extremities Exam Extremities exam: Present normal inspection Back Exam Back exam: Present normal inspection Neurological Exam Neurological exam: Present alert and oriented X3 Psychiatric Psychiatric exam: Present normal affect Skin Skin exam: Present warm and dry Medical Decision Making Medical Records Screening: Per USPSTF and CDC recommendations, given the prevalence of disease in our region, it is our hospital?s policy to screen for HIV and viral Hepatitis for all patients aged 18 and over and those with ongoing risk factors. Ryan Inquiry Pt receiving controlled substance: No Medical Decision Narrative: Rudy Melton is a 24-year-old female with no significant past medical history who presents to the emergency department for complaints of swelling and redness to both of her eyes. Patient states that she was at work when she developed irritation and redness and swelling to her left eye. She states that vision is slightly abnormal and that eye and she sees rainbows around some lights. She states that over the course of the day, it spread to her right eye. She noticed that the whites of her eyes were red. She states that she has some allergies but has not taken any new medications or had known exposures. She took ibuprofen prior to arrival as well as artificial tears and Visine drops. She denies any shortness of breath, vomiting, diarrhea or fevers. On arrival, patient is normotensive, heart rate within normal limits, breathing company on room air with oxygen saturation 99% SpO2. Physical exam, stated above, revealed an overall well-appearing female in no distress. She has some swelling to her bilateral upper and lower eyelids. Conjunctival are injected bilaterally. Pupils equal round reactive to light. Extraocular muscles intact. Visual gatica intact. She has some yellowish discharge emanating from the bilateral lower eyelids. Differential diagnosis includes, but is not limited to: Bacterial conjunctivitis, viral conjunctivitis, allergic conjunctivitis, allergic reaction, low concern for orbital cellulitis or preseptal cellulitis based on physical exam. This with the patient's symptomatology and physical exam is most consistent with conjunctivitis which could be bacterial, viral or allergic in nature. Will administer erythromycin ointment here and send patient home with it. Will also administer Benadryl for symptoms. Encouraged her to avoid possible allergic exposures in the future. Is felt that no additional workup is indicated at this time. Patient does not have a foreign body sensation in her eye there is low concern for foreign body at this time. Return precautions were given. All questions were answered. She demonstrated understanding and was in agreement this plan. She was then discharged from the emergency department in stable condition. Critical Care Critical Care Time Critical Care Time: No
[2024-11-29] MEDS: ERYTHROMYCIN BASE 1 GM OINT...G. OP (21:53)
[2024-11-29 22:03] VITALS: BP 138/84; PULSE 89; RESP 16; TEMP 37.2; O2SAT 99
== END 2024-11-29 22:04 | disposition home or self-care (01) ==
PROVIDERS: Emergency Provider Student in an Organized Health Care Education/Training Program
DX: H10.33 Unspecified acute conjunctivitis, bilateral (principal)
CPT/HCPCS: 99283